=== PATIENT | female | born 1960 | race Caucasian/White ===

== ENCOUNTER 2016-08-18 12:54 | Emergency (ER) | payer OTHER ==
[~2016-08-18] VITALS: Ht 172.7 cm; Wt 86.0 kg
[2016-08-18 12:57] VITALS: BP 184/88; PULSE 60; RESP 16; TEMP 97.7; O2SAT 95
--- NOTE | 2016-08-18 13:54 | PD ---
HPI Chief Complaint: Pain: Acute or Chronic Time Seen by Provider: 13:54 Travel History International Travel<30 days: No Contact w/Intl Traveler<30days: No Traveled to known affect area: No History of Present Illness HPI 55-year-old female with a history of asthma presents to the emergency department for evaluation of right rib pain for 1 week. Patient states that she feels as though she has pressure and pain underneath her right rib and her right upper back. She denies any injury or trauma to her back or ribs. States that the pain has been worsening over the past week. States that last night she had subjective fever and today she woke up and feels weak. States that certain movements will aggravate the pain but overall the pain is constant. Denies any alleviating factors. She denies any chills, nausea, vomiting, chest pain, shortness of breath, difficulty breathing, cough or cold symptoms, diarrhea, constipation, burning with urination, painful urination. She drinks alcohol occasionally. Denies smoking cigarettes. Smokes marijuana occasionally. Prior abdominal surgeries include cholecystectomy and appendectomy. No other complaints. PFSH Past Medical History Asthma: Yes Cardiovascular Problems: Yes (bradycardia) Social History Alcohol Use: Yes (occasionally, on the weekends) Tobacco Use: No Substance Use: Yes (marijuana) Allergies-Medications (Allergen,Severity, Reaction): Coded Allergies: Aspirin (Verified Allergy, Severe, Hives, 08/18/16) Reported Meds & Prescriptions Reported Meds & Active Scripts Active Reported Trazodone (Trazodone HCl) 300 Mg Tab 300 Mg PO HS Lamictal (Lamotrigine) 100 Mg Tab 100 Mg PO DAILY Singulair (Montelukast Sodium) 10 Mg Tab 10 Mg PO HS Prilosec (Omeprazole) 20 Mg Cap 20 Mg PO DAILY Neurontin (Gabapentin) 800 Mg Tab 800 Mg PO TID Review of Systems Except as stated in HPI: all other systems reviewed are Neg Physical Exam Narrative GENERAL: Well-nourished and well-developed pleasant patient in no acute distress who is nontoxic appearing. SKIN: Warm and dry without any obvious rashes or lesions. HEAD: Normocephalic and atraumatic. EYES: No injection, drainage, or hyphema noted. PERRLA. EOMI. ENT: No nasal drainage noted. Oropharynx is clear. NECK: Supple and the trachea is midline. CARDIOVASCULAR: Regular rate and rhythm. RESPIRATORY: Breath sounds are equal bilaterally with no accessory muscle use, wheezing, rhonchi, or crackles. CHEST: Mild tenderness to palpation along right lower ribs. No obvious deformities or step-offs. GASTROINTESTINAL: Abdomen is soft, non-tender, and nondistended. MUSCULOSKELETAL: No obvious deformities, swelling, cyanosis, or ecchymosis is present throughout the upper and lower extremities. Patient has full range of motion without any signs of neurovascular compromise. BACK: Nontender without any obvious deformities, bony point tenderness, or crepitus noted throughout the thoracic and lumbar vertebrae. NEUROLOGICAL: Awake, alert, and oriented. Normal speech and gait. Cranial nerves are grossly intact. Data Data Last Documented VS Vital Signs Date Time Temp Pulse Resp B/P Pulse Ox O2 Delivery O2 Flow Rate FiO2 08/18/16 15:39 62 16 158/65 98 Room Air 08/18/16 12:57 97.7 Orders Electrocardiogram (08/18/16 13:50) Ckmb (Isoenzyme) Profile (08/18/16 13:50) Complete Blood Count With Diff (08/18/16 13:50) Magnesium (Mg) (08/18/16 13:50) Prothrombin Time / Inr (Pt) (08/18/16 13:50) Act Partial Throm Time (Ptt) (08/18/16 13:50) Troponin I (08/18/16 13:50) Iv Access Insert/Monitor (08/18/16 13:50) Sodium Chloride 0.9% Flush (Ns Flush) (08/18/16 14:00) Lipase (08/18/16 13:50) Comprehensive Metabolic Panel (08/18/16 13:50) Ribs, Uni (W/O Exp Cxr) (08/18/16 14:05) Ketorolac Inj (Toradol Inj) (08/18/16 15:15) Sodium Chlor 0.9% 1000 Ml Inj (Ns 1000 M (08/18/16 15:03) Labs Laboratory Tests Test 08/18/16 14:49 White Blood Count 5.2 TH/MM3 Red Blood Count 4.70 MIL/MM3 Hemoglobin 13.7 GM/DL Hematocrit 40.6 % Mean Corpuscular Volume 86.4 FL Mean Corpuscular Hemoglobin 29.0 PG Mean Corpuscular Hemoglobin 33.6 % Concent Red Cell Distribution Width 12.9 % Platelet Count 211 TH/MM3 Mean Platelet Volume 8.8 FL Neutrophils (%) (Auto) 46.4 % Lymphocytes (%) (Auto) 43.9 % Monocytes (%) (Auto) 7.7 % Eosinophils (%) (Auto) 1.1 % Basophils (%) (Auto) 0.9 % Neutrophils # (Auto) 2.4 TH/MM3 Lymphocytes # (Auto) 2.3 TH/MM3 Monocytes # (Auto) 0.4 TH/MM3 Eosinophils # (Auto) 0.1 TH/MM3 Basophils # (Auto) 0.0 TH/MM3 CBC Comment DIFF FINAL Differential Comment Prothrombin Time 10.6 SEC Prothromb Time International 1.0 RATIO Ratio Activated Partial 25.0 SEC Thromboplast Time Sodium Level 138 MEQ/L Potassium Level 3.7 MEQ/L Chloride Level 102 MEQ/L Carbon Dioxide Level 29.0 MEQ/L Anion Gap 7 MEQ/L Blood Urea Nitrogen 11 MG/DL Creatinine 0.96 MG/DL Estimat Glomerular Filtration 61 ML/MIN Rate Random Glucose 79 MG/DL Calcium Level 8.7 MG/DL Magnesium Level 2.2 MG/DL Total Bilirubin 0.6 MG/DL Aspartate Amino Transf 10 U/L (AST/SGOT) Alanine Aminotransferase 14 U/L (ALT/SGPT) Alkaline Phosphatase 63 U/L Total Creatine Kinase 86 U/L Troponin I LESS THAN 0.02 NG/ML Total Protein 7.2 GM/DL Albumin 3.8 GM/DL Lipase 237 U/L MDM Medical Decision Making Medical Screen Exam Complete: Yes Emergency Medical Condition: Yes Differential Diagnosis Musculoskeletal pain versus muscle spasm versus pleurisy versus pneumonia versus other Narrative Course 55-year-old female presents to the emergency department for evaluation of right rib pain with weakness. Patient is afebrile, vital signs are stable. No injury or trauma. Physical examination is essentially unremarkable. Abdominal examination is benign. IV access is obtained, labs have been drawn and sent. Chest x-ray is been ordered and is pending. EKG shows sinus bradycardia with a ventricular rate of 48 bpm, no acute ST elevations or depressions. X-ray of the chest and right ribs is unremarkable for any acute abnormalities. CBC is unremarkable. CMP is unremarkable. Troponin is less than 0.02. Patient has been given IV fluids and Toradol 30 mg IV. Patient had some improvement in her pain with the medication. Discussed with the patient the results of labs and imaging. Discussed with her that the etiology of her rib pain is unclear but there is no evidence for any acute life threatening illness. We'll give her a prescription for Mobic. She is advised to follow-up with her PCP if her symptoms do not improve. Patient verbalizes understanding and agreement with treatment plan. I discussed the case with my attending physician Dr. Hartley who is aware of the patients history, physical examination findings, and treatment plan. Diagnosis Primary Impression: Rib pain on right side Referrals: Primary Care Physician Patient Instructions: General Instructions Additional Instructions: Take medication as prescribed with food and a full glass of water. Follow-up with your Primary Care Physician. Return to the ED for any acute worsening of symptoms. Med/Other Pt SpecificInfo: Prescription(s) given Disposition: 01 DISCHARGE HOME Condition: Stable Macey Ch Aug 18, 2016 13:54
[2016-08-18] MEDS ORDERED: SODIUM CHLORIDE 0.9% FLUSH 5 ML FLUSH IVF PRN (14:00)
--- NOTE | 2016-08-18 14:31 | RADRPT ---
EXAM DATE/TIME: 08/18/2016 14:04 [facility] COMPARISON: No previous studies available for comparison. INDICATIONS : Right side rib pain that radiates to back. No known trauma. MEDICAL HISTORY : None. SURGICAL HISTORY : None. ENCOUNTER: Initial ACUITY: 1 week PAIN SCORE: 8/10 LOCATION: Left Chest,ribs. FINDINGS: Multiple views of the right ribs were performed. There is no evidence of displaced fracture. No atilio tructive lesions or areas of periosteal thickening are seen. Expiratory view of the chest is negativ e for pneumothorax. The mediastinal structures are midline. CONCLUSION: Unremarkable examination of the right ribs and chest. Sharyn Fung MD on August 18, 2016 at 14:29 Board Certified Radiologist. This report was verified electronically.
[2016-08-18] MEDS ORDERED: MONT10TA2 PO (14:50)
[2016-08-18] MEDS ORDERED: TRAZ300T2 PO (14:50)
[2016-08-18] MEDS ORDERED: LAMO100 PO (14:50)
[2016-08-18] MEDS ORDERED: NEUR800T PO (14:50)
[2016-08-18] MEDS ORDERED: PRIL20CA9 PO (14:50)
[2016-08-18] MEDS ORDERED: SODIUM CHLOR 0.9% 1000 ML INJ 1,000 ML IV SCH (15:03)
[2016-08-18 15:06] LABS: AUTOMATED NEUTROPHIL # 2.4 TH/MM3 (1.8-7.7); BASOPHIL % 0.9 % (0.0-2.0); EOSINOPHIL # 0.1 TH/MM3 (0-0.4); EOSINOPHIL % 1.1 % (0.0-4.0); HEMATOCRIT 40.6 % (35.0-46.0); HEMO FLAGS DIFF FINAL; LYMPH % 43.9 % (9.0-44.0); LYMPHOCYTE # 2.3 TH/MM3 (1.0-4.8); MEAN CELL VOLUME 86.4 FL (80.0-100.0); MEAN CORPUSCULAR HGB CONC 33.6 % (32.0-36.0); MONO % 7.7 % (0.0-8.0); NEUT % 46.4 % (16.0-70.0); PLATELET COUNT 211 TH/MM3 (150-450); RED CELL DISTRIBUTION WIDTH 12.9 % (11.6-17.2); WHITE BLOOD COUNT 5.2 TH/MM3 (4.0-11.0)
[2016-08-18] MEDS ORDERED: KETOROLAC TROMETHAMINE 30 MG/ML (IVP) VIAL IV PUSH ONE (15:15)
[2016-08-18 15:16] LABS: PROTHROMBIN TIME - PATIENT 10.6 SEC (9.8-11.6)
[2016-08-18 15:34] LABS: ALT (GPT) 14 U/L (10-53); ANION GAP 7 MEQ/L (5-15); AST (GOT) 10 U/L (15-37); BLOOD UREA NITROGEN 11 MG/DL (7-18); CHLORIDE 102 MEQ/L (98-107); GLOMERULAR FILTRATION RATE 61 ML/MIN (>89); MAGNESIUM 2.2 MG/DL (1.5-2.5); POTASSIUM 3.7 MEQ/L (3.5-5.1); SODIUM (NA) 138 MEQ/L (136-145)
[2016-08-18 15:37] LABS: ALKALINE PHOSPHATASE 63 U/L (45-117); TOTAL BILIRUBIN ADULT 0.6 MG/DL (0.2-1.0)
[2016-08-18 15:39] VITALS: BP 158/65; PULSE 62; RESP 16; O2SAT 98
[2016-08-18 15:50] LABS: CREATINE KINASE 86 U/L (26-192)
[2016-08-18] MEDS ORDERED: MELO-1 PO (16:39)
--- NOTE | 2016-08-19 09:09 | RADRPT ---
EXAM DATE/TIME: 08/18/2016 14:11 [facility] COMPARISON: RIBS RIGHT(W PA CXR MIN 3VWS), August 18, 2016, 14:04. INDICATIONS : Left side chest and rib pain. MEDICAL HISTORY : None. SURGICAL HISTORY : None. ENCOUNTER: Initial ACUITY: 1 week PAIN SCORE: 8/10 LOCATION: Left chest ribs/back. FINDINGS: PA and lateral views of the chest demonstrate the lungs to be symmetrically aerated without evidence of mass, infiltrate or effusion. The cardiomediastinal contours are unremarkable. Osseous structure s are intact. CONCLUSION: Normal examination. Sharyn Fung MD on August 18, 2016 at 14:24 Board Certified Radiologist. This report was verified electronically.
--- NOTE | 2016-08-19 10:45 | EKG ---
Date Performed: 08/18/2016 Time Performed: 14:23:03 PTAGE: 55 years EKG: SINUS BRADYCARDIA BORDERLINE ECG NO PREVIOUS TRACING DOCTOR: Mukund Caba Interpretating Date/Time 08/19/2016 10:43:44
== END 2016-08-18 16:54 | disposition home or self-care (01) ==
LOC: NEPB 12:54
DX: R07.81 Pleurodynia (principal); R53.1 Weakness; R00.1 Bradycardia, unspecified; R94.31 Abnormal electrocardiogram [ECG] [EKG]; Z87.09 Personal history of other diseases of the respiratory system
CPT/HCPCS: 71020; 71100; 80053; 82550; 83690; 83735; 84484; 85025; 85610; 85730; 93005; 96374; 99284; J1885; J7030